=== PATIENT | male | born 1950 | race Hispanic/Latino ===

== ENCOUNTER 2018-03-15 09:56 | Emergency (ER) | payer BC ==
[2018-03-15 09:56] VITALS: BMI 27.1
[2018-03-15 10:26] VITALS: TEMP 98.2
--- NOTE | 2018-03-15 10:30 | ED PDOC ---
Arrival/HPI - General Historian: Patient - History of Present Illness Time/Duration: 4-6 hours Symptom Onset: Sudden Symptom Course: Unchanged <Asael Moody - Last Filed: 03/15/18 14:07> - History of Present Illness Activities at Onset: Rest Context: Home <Arjun Alfredo - Last Filed: 03/15/18 14:57> - General Chief Complaint: High Blood Pressure - History of Present Illness Narrative History of Present Illness (Text): 67 year old male past medical history of DM, HTN, Hypothyroidism presents with elevated blood pressure. patient state he woke up at 5am this morning and checked his blood pressure and it was 199/97. 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 Patient states his BP has been elevated for the past year. Patient states he has mild discomfort in front of head. Patient denies cheat pain, SOB, nausea, vomiting, change in vision, weakness or any other complaints at this time. 03/15/18 10:32 (Asael Moody) Past Medical History - Provider Review Nursing Documentation Reviewed: Yes - Infectious Disease Hx of Infectious Diseases: None - Tetanus Immunization Tetanus Immunization: Unknown - Cardiac Hx Cardiac Disorders: Yes Hx Hypertension: Yes - Pulmonary Hx Respiratory Disorders: No - Neurological Hx Neurological Disorder: No - HEENT Hx HEENT Disorder: No - Renal Hx Renal Disorder: No - Endocrine/Metabolic Hx Endocrine Disorders: Yes Hx Diabetes Mellitus Type 2: Yes Hx Hypothyroidism: Yes - Hematological/Oncological Hx Blood Disorders: No - Integumentary Hx Dermatological Disorder: No - Musculoskeletal/Rheumatological Hx Musculoskeletal Disorders: Yes Hx Arthritis: Yes - Gastrointestinal Hx Gastrointestinal Disorders: No - Genitourinary/Gynecological Hx Genitourinary Disorders: No - Psychiatric Hx Psychophysiologic Disorder: No Hx Substance Use: No - Past Surgical History Past Surgical History: No Previous - Surgical History Hx Tonsillectomy: Yes - Anesthesia Hx Anesthesia: Yes Hx Anesthesia Reactions: No - Suicidal Assessment Feels Threatened In Home Enviroment: No <Asael Moody - Last Filed: 03/15/18 14:07> - Travel History Have you recently traveled outside [place] w/in the past 3 mons?: No - Past History Past History: No Previous <Arjun Alfredo - Last Filed: 03/15/18 14:57> Family/Social History - Physician Review Nursing Documentation Reviewed: Yes Family/Social History: No Known Family HX Smoking Status: Never Smoked Hx Alcohol Use: No Hx Substance Use: No Hx Substance Use Treatment: No <MoodyAsael - Last Filed: 03/15/18 14:07> Allergies/Home Meds <MoodyAsael - Last Filed: 03/15/18 14:07> <Arjun Alfredo - Last Filed: 03/15/18 14:57> Allergies/Adverse Reactions: Allergies erythromycin base Allergy (Verified 09/11/16 01:36) ANAPHYLAXIS Home Medications: Home Meds Medication Instructions Recorded Confirmed Atorvastatin Calcium [Lipitor] 10 mg PO DAILY 09/22/12 03/15/18 Naproxen [Naprosyn Tab] 125 mg PO BID 09/11/16 03/15/18 Insulin Glargine, Recombina 36 units SC DAILY 03/15/18 03/15/18 [Lantus] Insulin Lispro [humALOG] 6 units SC AC 03/15/18 03/15/18 Levothyroxine [Synthroid] 100 mcg PO QOTHERDAY 03/15/18 03/15/18 Levothyroxine [Synthroid] 112 mcg PO QOTHERDAY 03/15/18 03/15/18 Loratadine [Claritin] 10 mg PO DAILY 03/15/18 03/15/18 Ramipril [Altace] 10 mg PO BID 03/15/18 03/15/18 Review of Systems - Review of Systems Constitutional: Normal Eyes: Normal ENT: Normal Respiratory: Normal Cardiovascular: Normal Gastrointestinal: Normal Musculoskeletal: Normal Skin: Normal Neurological: Normal Endocrine: Normal Hemo/Lymphatic: Normal Psychiatric: Normal <MoodyAsael - Last Filed: 03/15/18 14:07> Physical Exam Temperature: Afebrile Blood Pressure: Hypertensive Pulse: Regular Respiratory Rate: Normal Appearance: Positive for: Well-Appearing, Non-Toxic, Comfortable Pain Distress: None Mental Status: Positive for: Alert and Oriented X 3 - Systems Exam Head: Present: Atraumatic, Normocephalic Pupils: Present: PERRL Extroacular Muscles: Present: EOMI Conjunctiva: Present: Normal Mouth: Present: Moist Mucous Membranes Neck: Present: Normal Range of Motion Respiratory/Chest: Present: Clear to Auscultation, Good Air Exchange. No: Respiratory Distress Cardiovascular: Present: Regular Rate and Rhythm, Normal S1, S2 Abdomen: Present: Normal Bowel Sounds. No: Tenderness, Distention Upper Extremity: No: Edema Lower Extremity: Present: Normal Inspection. No: Edema Neurological: Present: GCS=15, CN II-XII Intact Skin: Present: Warm Psychiatric: Present: Alert, Oriented x 3 <Asael Moody - Last Filed: 03/15/18 14:07> Vital Signs Temp Pulse Resp BP Pulse Ox 03/15/18 14:05 65 18 148/86 99 03/15/18 13:48 64 17 145/91 H 99 03/15/18 12:50 65 17 137/81 99 03/15/18 12:32 61 18 167/90 H 98 03/15/18 12:20 60 17 174/98 H 99 03/15/18 11:33 75 170/89 H 03/15/18 11:08 77 17 186/96 H 99 03/15/18 10:38 66 180/104 H 03/15/18 10:21 98.2 F 69 18 182/110 H 99 Medical Decision Making - Lab Interpretations I have reviewed the lab results: Yes <Asael Moody - Last Filed: 03/15/18 14:07> Re-evaluation Time: 13:00 Reassessment Condition: Unchanged - Lab Interpretations Interpretation: Abnormal lab values (abnl Thyroid) - RAD Interpretation [employer] Development Team Lead: Radiologist - EKG Interpretation Interpreted by ED Physician: Yes Type: 12 lead EKG <Arjun Alfredo - Last Filed: 03/15/18 14:57> ED Course and Treatment: Plan -hydralazine IV -CBC CMP EKG -CT Head -reasses 03/15/18 10:30 CT head negative ffor acute issue BP still elevated -Will give clonidine .1 and reasses 03/15/18 11:11 BP improved to 138/80 reaching out to PCP 03/15/18 13:14 Spoke to PCP covering, advised patient to follow up in office [facility] 03/15/18 13:46 (Asael Moody) A 67 year old male with high blood pressure. In agreement with resident note, which includes further HPI details. Patient was seen and evaluated with resident , came up with plan and treatment together. I performed the hx and physical exam of the patient and discussed their mgt with the RESIDENT. I reviewed the RESIDENT's NOTE and agree with the assessment and plan of care. pt is comfortable appearing, NO complaints NIH stroke scale ~ 0 pt remained comfortable vital signs unchanged pt is made aware of his medical results will suggest additional anti-htn med pt is encouraged no caffeine products and avoid stressful situations pt will f/u as directed pt will be discharged home (Arjun Alfredo) - Lab Interpretations Lab Results: 03/15/18 10:00 03/15/18 10:00 Lab Results 03/15/18 10:00: Thyroxine (T4) 12.8 H, TSH 3rd Generation 0.33 L 03/15/18 10:00: Sodium 145, Potassium 4.5, Chloride 102, Carbon Dioxide 31, Anion Gap 16, BUN 20, Creatinine 1.1, Est GFR ( Amer) > 60, Est GFR (Non- Af Amer) > 60, Random Glucose 75, Calcium 9.3, Total Bilirubin 1.7 H, AST 25, ALT 33, Alkaline Phosphatase 83, Total Protein 7.5, Albumin 4.3, Globulin 3.2, Albumin/Globulin Ratio 1.3 03/15/18 10:00: WBC 6.1, RBC 5.09, Hgb 15.0, Hct 43.2, MCV 84.9, MCH 29.5, MCHC 34.7, RDW 12.8, Plt Count 212, MPV 9.7, Gran % 61.3, Lymph % (Auto) 25.1, Menard % (Auto) 10.2 H, Eos % (Auto) 3.1, Baso % (Auto) 0.3, Gran # 3.74, Lymph # (Auto ) 1.5, Menard # (Auto) 0.6, Eos # (Auto) 0.2, Baso # (Auto) 0.02 - RAD Interpretation Narrative RAD Interpretations (Text): 03/15/18 14:53 PROCEDURE: CT HEAD WITHOUT CONTRAST. HISTORY: HTN, slight head discomfort COMPARISON: None available. TECHNIQUE: Axial computed tomography images were obtained through the head/brain without intravenous contrast. Radiation dose: Total exam DLP = 943 mGy-cm. This CT exam was performed using one or more of the following dose reduction techniques: Automated exposure control, adjustment of the mA and/or kV according to patient size, and/or use of iterative reconstruction technique. FINDINGS: HEMORRHAGE: No intracranial hemorrhage. BRAIN: No mass effect or edema. No atrophy or chronic microvascular ischemic changes. VENTRICLES: Unremarkable. No hydrocephalus. CALVARIUM: Unremarkable. PARANASAL SINUSES: Unremarkable as visualized. No significant inflammatory changes. MASTOID AIR CELLS: Unremarkable as visualized. No inflammatory changes. OTHER FINDINGS: None. IMPRESSION: No acute findings (Arjun Alfredo) Radiology Orders: 03/15/18 10:35 HEAD W/O CONTRAST [CT] Stat - EKG Interpretation EKG Interpretation (Text): 03/15/18 14:51 NSR at 70 bpm, LAD, no ectopy, inverted T In leads III, voltage critiera LVH, no st changes, BORDERLINE EKG; (Arjun Alfredo) - Medication Orders Current Medication Orders: Discontinued Medications Clonidine HCl (Catapres) 0.1 mg PO STAT STA Stop: 03/15/18 11:13 Last Admin: 03/15/18 11:33 Dose: 0.1 mg MAR Pulse and Blood Pressure Document 03/15/18 11:33 SF (Rec: 03/15/18 11:33 [email or web address] Pulse Pulse Rate (60-90) 75 Blood Pressure Blood Pressure (100/60-150/90) 170/89 Hydralazine HCl (Apresoline) 10 mg IVP STAT [place] Last Admin: 03/15/18 10:38 Dose: 10 mg IVP Administration Document 03/15/18 10:38 SF (Rec: 03/15/18 10:40 SF [email or web address]) Charges for Administration # of IVP Administrations 1 MAR Pulse and Blood Pressure Document 03/15/18 10:38 SF (Rec: 03/15/18 10:40 SF [email or web address]) Pulse Pulse Rate (60-90) 66 Blood Pressure Blood Pressure (100/60-150/90) 180/104 Losartan Potassium (Cozaar) 50 mg PO STAT STA Stop: 03/15/18 14:04 - PA / TAXATION ECONOMIST / Resident Statement IDRIS has reviewed & agrees with the documentation as recorded. / has examined the patient and agrees with the treatment plan. <Arjun Alfredo - Last Filed: 03/15/18 14:57> Disposition/Present on Arrival - Present on Arrival Any Indicators Present on Arrival: No History of DVT/PE: No History of Uncontrolled Diabetes: No Urinary Catheter: No History of Decub. Ulcer: No History Surgical Site Infection Following: None - Disposition Have Diagnosis and Disposition been Completed?: Yes Disposition Time: 13:48 <Asael Moody - Last Filed: 03/15/18 14:07> <Arjun Alfredo - Last Filed: 03/15/18 14:57> - Disposition Diagnosis: Hypertension Disposition: HOME/ ROUTINE Condition: IMPROVED Discharge Instructions (ExitCare): High Blood Pressure in Adults, Low Salt Diet Print Language: TURKMEN Additional Instructions: Please continue to take current BP medications along with losartan once a day. Pleas keep a log of blood pressure readings. Follow up in office with PMD on Sunday for medication adjustment if needed. Please avoid caffeine and tobacco use. Please return to ED if blood pressure is worsened. Prescriptions: Losartan [Cozaar] 50 mg PO DAILY #7 tab Referrals: PCP,NO [Non-Staff] - Follow up with primary Forms: [employer] (Romansh)
[2018-03-15 10:49] LABS: BASO # 0.02 K/mm3 (0.0-2.0); BASO % 0.3 % (0.0-3.0); EOS # 0.2 (0.0-0.7); EOS % 3.1 % (1.5-5.0); GRAN # 3.74 (1.4-6.5); GRAN % 61.3 % (50.0-68.0); LYMPH # 1.5 (1.2-3.4); LYMPH % 25.1 % (22.0-35.0); MEAN CELL VOLUME 84.9 fl (80.0-105.0); MEAN CORPUSCULAR HEMOGLOBIN 29.5 pg (25.0-35.0); MEAN CORPUSCULAR HGB CONC 34.7 g/dl (31.0-37.0); MEAN PLATELET VOLUME 9.7 fl (7.0-11.0); MONO # 0.6 (0.1-0.6); MONO % 10.2 % (1.0-6.0); RBC 5.09 10^6/uL (3.5-6.1); RED CELL DISTRIBUTION WIDTH 12.8 % (11.5-14.5); WHITE BLOOD COUNT 6.1 10^3/ul (4.5-11.0)
[2018-03-15 10:59] LABS: ALB/GLOB RATIO 1.3 (1.1-1.8); ALBUMIN 4.3 g/dL (3.0-4.8); ALT/SGPT 33 U/L (7-56); AST/SGOT 25 U/L (17-59); BLOOD UREA NITROGEN 20 mg/dL (7-21); CALCIUM 9.3 mg/dL (8.4-10.5); GFR AFRICAN-AMERICAN > 60; GFR NON-AFRICAN AMERICAN > 60
--- NOTE | 2018-03-15 11:10 | CT ---
PROCEDURE: CT HEAD WITHOUT CONTRAST. HISTORY: HTN, slight head discomfort COMPARISON: None available. TECHNIQUE: Axial computed tomography images were obtained through the head/brain without intravenous contrast. Radiation dose: Total exam DLP = 943 mGy-cm. This CT exam was performed using one or more of the following dose reduction techniques: Automated exposure control, adjustment of the mA and/or kV according to patient size, and/or use of iterative reconstruction technique. FINDINGS: HEMORRHAGE: No intracranial hemorrhage. BRAIN: No mass effect or edema. No atrophy or chronic microvascular ischemic changes. VENTRICLES: Unremarkable. No hydrocephalus. CALVARIUM: Unremarkable. PARANASAL SINUSES: Unremarkable as visualized. No significant inflammatory changes. MASTOID AIR CELLS: Unremarkable as visualized. No inflammatory changes. OTHER FINDINGS: None. IMPRESSION: No acute findings
[2018-03-15 11:17] LABS: T4 12.8 ug/dL (5.5-11.0)
[2018-03-15 13:03] VITALS: O2SAT 99
[2018-03-15 14:07] VITALS: BP 148/86; PULSE 65; RESP 18
--- NOTE | 2018-03-16 09:39 | CARD ---
APPROVED REPORT EKG Measurement Heart [id number] <Conclusion> Normal sinus rhythm Minimal voltage criteria for LVH, may be normal variant No change
== END 2018-03-15 14:05 | disposition home or self-care (01) ==
LOC: ED 09:56
DX: I10 Essential (primary) hypertension (principal); E11.9 Type 2 diabetes mellitus without complications; E03.9 Hypothyroidism, unspecified
CPT/HCPCS: 70450; 80053; 84436; 84443; 85025; 93005; 96374; 99285; J0360